=== PATIENT | male | born 1985 | race Caucasian/White ===

== ENCOUNTER 2020-11-17 04:38 | Emergency (ER) | payer OTHER ==
[2020-11-17 04:57] LABS: BASOPHIL 0.9 % (0-2); EOSINOPHIL 4.3 % (0-5); HCT 44.3 % (42.0-52.0); HGB 15.3 g/dl (13.2-18.0); LYMPHOCYTE 20.2 % (15-48); MCH 34.5 pg (25.0-31.0); MCHC 34.5 g/dL (32.0-36.0); MCV 99.8 fL (78.0-100.0); MONOCYTE 7.4 % (0-12); MPV 9.9 fL (6.0-9.5); NEUTROPHIL 66.7 % (41-80); NRBC 0; PLT 279 K/uL (150-400); RBC 4.44 M/uL (4.70-6.00); RDW 12.7 % (11.5-14.0); WBC 16.9 K/uL (4.0-10.5)
[2020-11-17 05:25] LABS: ALBUMIN 4.2 g/dL (3.4-5.0); BILIRUBIN - TOTAL 0.5 mg/dL (0.2-1.0); BUN/CREAT RATIO (CALC) 11.4 RATIO; CREATININE 1.14 mg/dL (0.67-1.17); FT4 (FREE T4) 0.9 ng/dL (0.76-1.46); GLOBULIN (CALCULATION) 4.4 g/dL; MAGNESIUM 1.9 mg/dL (1.8-2.4); POTASSIUM 4.2 mmol/L (3.5-5.1); TOTAL PROTEIN 8.6 g/dL (6.4-8.2)
== END 2020-11-17 06:30 | disposition home or self-care (01) ==
LOC: FER 04:38
PROVIDERS: Emergency Medicine Emergency Medical Services
DX: I47.1 Supraventricular tachycardia (principal); Z79.899 Other long term (current) drug therapy
CPT/HCPCS: 36415; 80053; 83735; 84439; 84443; 84484; 85025; 93005; J0153; J7030